=== PATIENT | female | born 1975 | race Hispanic/Latino ===

== ENCOUNTER 2019-12-13 17:52 | Emergency (ER) | payer OTHER, SELFPAY ==
[2019-12-13] VITALS (8 sets, daily range): BP systolic 151–166; BP diastolic 73–98; PULSE 98–106; RESP 16–24; TEMP 36.9; O2SAT 95–98
--- NOTE | ~2019-12-13 | CT_ITS ---
EXAMINATION: CT brain wo con INDICATION: Transient alteration of awareness COMPARISON: None TECHNIQUE: Standard unenhanced head CT. The dose-length product (DLP) was 681.00 mGy-cm. The mA was a djusted according to patient size. Iterative reconstruction technique was employed. FINDINGS: There is no intracranial hemorrhage, acute infarction, or abnormal mass lesion. The ventric les are normal. There is no abnormal mass effect or midline shift. The marie-white matter differentiat ion is normal. The basal cisterns are patent. The orbits are normal. The paranasal sinuses, mastoids and calvarium are normal. IMPRESSION: 1. No acute intracranial abnormality. Reviewed, dictated and finalized at location A.
--- NOTE | 2019-12-13 17:57 | ECG_ITS ---
Measurements Intervals [place] Rate: 101 P: 29 VT: 175 QRS: 8 QRSD: 83 T: 19 QT: 312 QTc: 406 Interpretive Statements SINUS TACHYCARDIA BORDERLINE ECG Electronically Signed On 12-13-2019 20:06:38 CDT by James Bhatt D.O.
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
[2019-12-13] MEDS: SODIUM CHLORIDE 0.9% IV 1,000 ML 999 ML IV CONT ×2 (18:54→19:08)
[2019-12-13 19:37] LABS: Blood Urea Nitrogen 14 mg/dL (7-17); Calcium 8.4 mg/dL (8.4-10.2); Carbon Dioxide 25 mmol/L (22-30); Chloride 105 mmol/L (98-107); Estimated CRCL calculation 98 ml/min; Estimated Glomerular Filt Rate > 60; Glucose 99 mg/dL (65-105); Potassium 3.7 mmol/L (3.4-5.0); Sodium 137 mmol/L (137-145)
--- NOTE | 2019-12-13 19:44 | PC.NURSE ---
pt received 2l NS ORDERED BY DR PAREKH
[2019-12-13 19:58] LABS: Basophils Absolute Auto 0.1 K/mm3 (0.0-0.1); Basophils Percent Auto 0.5 % (0.2-1.2); Eosinophils Absolute Auto 0.3 K/mm3 (0-0.3); Eosinophils Percent Auto 2.3 % (0-4.4); Hematocrit 39.9 % (37.0-47.0); Hemoglobin 13.5 g/dL (12.0-15.0); Immature Granulocyte Absolute 0.09 K/mm3 (0.00-0.031); Immature Granulocyte Percent A 0.6 % (0-0.5); Lymphocytes Absolute Auto 1.11 K/mm3 (0.9-3.2); Lymphocytes Percent Auto 7.4 % (18.3-44.2); Mean Corpuscular HGB Conc 33.8 g/dl (32-36); Mean Corpuscular Hemoglobin 29.5 pg (26-34); Mean Corpuscular Volume 87.1 fl (80-100); Mean Platelet Volume 9.4 fl (7.4-10.4); Monocytes Absolute Auto 1.1 K/mm3 (0.1-0.6); Monocytes Percent Auto 7.2 % (2.6-8.5); Neutrophils Absolute Auto 12.2 K/mm3 (1.3-6.7); Platelet Count Result 377 k/mm3 (150-375); Red Blood Count 4.58 M/mm3 (4.2-5.4); Red Cell Distribution Width 15.2 % (11.5-14.5); White Blood Count 14.9 K/mm3 (4.5-10.0)
[2019-12-13 19:59] LABS: Amphetamine Screen Urine Negative (Negative); Barbiturate Screen Urine Negative (Negative); Benzodiazepines Screen Urine Negative (Negative); Cannabinoid Screen Urine Negative (Negative); Cocaine Screen Urine Negative (Negative); Methadone Screen Urine Negative (Negative); Opiate Screen Urine Negative (Negative); Phencyclidine Screen Urine Negative (Negative)
== END 2019-12-13 20:30 | disposition home or self-care (01) ==
PROVIDERS: General Practice; Emergency Provider Emergency Medicine; PCP Internal Medicine
DX: R55 Syncope and collapse (principal); D72.829 Elevated white blood cell count, unspecified; D47.3 Essential (hemorrhagic) thrombocythemia; I10 Essential (primary) hypertension; R00.0 Tachycardia, unspecified
CPT/HCPCS: 36415; 70450; 80048; 80307; 81025; 85025; 93005; 99284; J7030

== ENCOUNTER 2020-05-17 16:56 | Emergency (ER) | payer OTHER, SELFPAY ==
[2020-05-17 17:06] VITALS: BP 150/77; PULSE 80; RESP 16; TEMP 36.9; O2SAT 100
--- NOTE | 2020-05-17 17:13 | ED.FEMALEGU ---
HPI - Female Genitourinary General Chief complaint: Urogenital-Female Stated complaint: possible uti Time Seen by Provider: 05/17/20 17:13 Source: patient and RN notes reviewed History of Present Illness HPI Narrative: Patient is a 45-year-old female who presents the urgent care with complaints of burning with urination. Patient states that started on . Patient states that she was seen in the emergency room at the beginning April and was on Macrobid at that time for UTI. States that she is aware that she is not drinking enough water. Denies of any abdominal pain, nausea, vomiting, fever, low back pain. Patient has not taken anything cruo-[id number]-[id number] for her symptoms. No other acute complaints. No acute distress noted. Patient aware of the plan of care. Some parts of this dictation were generated by voice recognition software and may contain typographical and/or grammatical inaccuracies. Related Data Home Medications Medication Instructions Recorded Confirmed levetiracetam [Keppra] 500 mg PO BID 05/17/20 05/17/20 lisinopril [Zestril] 10 mg PO DAILY 05/17/20 05/17/20 methotrexate sodium [Methotrexate 7.5 mg PO DIRECTED 05/17/20 05/17/20 (Anti-Rheumatic)] Allergies Allergy/AdvReac Type Severity Reaction Status Date / Time No Known Allergies Allergy Verified 05/17/20 17:14 Review of Systems Review of Systems: Narrative: CONSTITUTIONAL: Denies fever, chills, or sweats. EYES: Denies visual changes, redness, or discharge. ENT: Denies rhinorrhea, congestion, sore throat, or otalgia. CARDIOVASCULAR: Denies chest pain, palpitations, or edema. RESPIRATORY: Denies cough or dyspnea. GASTROINTESTINAL: Denies abdominal pain, nausea, vomiting, or diarrhea. GENITOURINARY: Reports of dysuria SKIN: Denies rash or itching. MUSCULOSKELETAL: Denies back pain, joint pain, or myalgia. NEUROLOGIC: Denies headache, numbness, or weakness. All other systems reviewed are negative, except as documented in HPI. [facility] Past Medical History Medical History (Updated 05/17/20 @ 17:16 by OKSANA Pinto) Hypertension Mental disability Syncope Surgical History Surgical History (Updated 12/13/19 @ 18:26 by Ariana Munroe MD) History of arthroscopy of right knee History of tubal ligation Social History Social History Smoking status: Never smoker Second hand tobacco smoke exposure: No Alcohol intake: never Gender identity (if verbalized by the patient): Female Comments At the time of my signature, I reviewed and agree with the nursing past medical, surgical, social, and family history. There is no relevant family history pertinent to the patient complaint. Exam Narrative: Exam Narrative: GENERAL: This is a well-nourished, well-developed patient, in no apparent distress. HEAD: normocephalic, atraumatic. EYES: PERRL. Sclera clear/white. Vision is grossly intact. EARS: External ears normal NOSE: External nose normal with no obvious nasal discharge, nares without redness, no rhinorrhea. THROAT: Mucous membranes moist NECK: Neck supple GASTROINTESTINAL: Abdomen soft, non-tender, nondistended. SKIN: warm, intact with no suspicious lesions or rash, good texture and turgor. NEURO: awake, alert, and oriented to person, place and time. There were no obvious focal neurologic abnormalities. EXTREMITIES: No clubbing, cyanosis, or edema. BACK: Negative bilateral CVA tenderness Course Vital Signs Vital signs: Vital Signs Temperature 98.4 F 05/17/20 17:06 Pulse Rate 80 05/17/20 17:06 Respiratory Rate 16 05/17/20 17:06 Blood Pressure 150/77 H 05/17/20 17:06 Pulse Oximetry 100 05/17/20 17:06 Temperature 98.4 F 05/17/20 17:06 Pulse Rate 80 05/17/20 17:06 Respiratory Rate 16 05/17/20 17:06 Blood Pressure 150/77 H 05/17/20 17:06 Pulse Oximetry 100 05/17/20 17:06 Reviewed-patient is informed that they may have pre-hypertension
== END 2020-05-17 17:23 | disposition home or self-care (01) ==
PROVIDERS: Emergency Provider Nurse Practitioner Family
DX: N39.0 Urinary tract infection, site not specified (principal); I10 Essential (primary) hypertension
CPT/HCPCS: 81003; 87077; 87086; 87088; 87186; 99213; G0463

== ENCOUNTER 2021-06-23 14:25 | Emergency (ER) | payer OTHER, SELFPAY ==
[2021-06-23 14:36] VITALS: BP 130/74; PULSE 83; RESP 18; TEMP 36.7; O2SAT 100
--- NOTE | 2021-06-23 14:39 | ED.FEMALEGU ---
HPI - Female Genitourinary General Chief complaint: Urogenital-Female Stated complaint: uti Time Seen by Provider: 06/23/21 14:39 Source: patient, RN notes reviewed and old records reviewed Mode of arrival: ambulatory Limitations: no limitations History of Present Illness HPI Narrative: 46-year-old female presents to the [facility] with complaints of urinary symptoms for 1 week. Denies any chest pain, abdominal pain. No nausea vomiting or diarrhea. Denies fevers Related Data Home Medications Medication Instructions Recorded Confirmed levetiracetam [Keppra] 500 mg PO BID 05/17/20 05/17/20 lisinopril [Zestril] 10 mg PO DAILY 05/17/20 05/17/20 methotrexate sodium [Methotrexate 7.5 mg PO DIRECTED 05/17/20 05/17/20 (Anti-Rheumatic)] Allergies Allergy/AdvReac Type Severity Reaction Status Date / Time No Known Allergies Allergy Verified 06/23/21 14:40 Review of Systems Review of Systems: All systems reviewed & are unremarkable except as noted in HPI and below Constitutional: Constitutional: Reports no additional constitutional complaints, Denies chills and Denies fatigue Eyes: Eyes: Reports no additional eye complaints ENT: Reports system reviewed and no additional complaints, except as documented Cardiovascular: Cardiovascular: Reports no additional cardiovascular complaints and Denies chest pain Respiratory: Respiratory: Reports no additional respiratory complaints, Denies cough and Denies dyspnea Gastrointestinal: Gastrointestinal: Reports no additional gastrointestinal complaints, Denies abdominal pain, Denies diarrhea, Denies nausea and Denies vomiting Genitourinary: Genitourinary: Reports as per HPI, Reports nocturia, Reports dysuria, Denies flank pain and Denies vaginal discharge Musculoskeletal: Musculoskeletal: Reports no additional musculoskeletal complaints and Denies back pain Integumentary/Breasts: Skin/Breast: Reports system reviewed and no additional complaints, except as docu Neurologic: Reports system reviewed and no additional complaints, except as documented Psychiatric: Psychiatric: Reports no additional psychiatric complaints Endocrine: Endocrine: Denies fatigue Allergic/Immunologic: Allergic/Immunologic: Reports no additional allergic/immunologic complaints [facility] Past Medical History Medical History (Updated 06/23/21 @ 19:47 by Jenn Torres) Hypertension Mental disability Syncope Surgical History Surgical History History of arthroscopy of right knee History of tubal ligation Social History Social History Smoking status: Never smoker Second hand tobacco smoke exposure: No Alcohol intake: never Gender identity (if verbalized by the patient): Female Comments At the time of my signature, I reviewed and agree with the nursing past medical, surgical, social, and family history. There is no relevant family history pertinent to the patient complaint. Exam Const: General: healthy appearing, no acute distress and alert Nutritional Appearance: well nourished Orientation/consciousness: patient oriented x3 Limitations: no limitations HENMT: Head: normal to inspection Eyes: Conjunctivae: conjunctivae normal Pupils: Equal, round and reactive pupils present Neck: Neck: normal visual inspection, no lymphadenopathy and no meningeal signs Chest: Chest palpation & inspection: normal inspection of the chest and abnormal inspection of the chest Resp: Effort & Inspection: normal respiratory effort Auscultation: clear to auscultation bilaterally Cardio: Rate: regular rate Rhythm: regular rhythm GI: GI Palp: Yes Soft to palpation and No Tenderness to palpation present (GI) : General: Yes no CVA tenderness Back/Spine/Pelvis: Back: no CVA tenderness Skin: General skin exam: normal color Rashes: no rashes Wounds: no wounds Neuro: General: patient oriented x3, mov
[2021-06-23 14:52] VITALS: BP 130/74; PULSE 83; RESP 18; TEMP 36.7; O2SAT 100
== END 2021-06-23 15:32 | disposition home or self-care (01) ==
PROVIDERS: Emergency Provider Nurse Practitioner
DX: N39.0 Urinary tract infection, site not specified (principal); I10 Essential (primary) hypertension; F79 Unspecified intellectual disabilities
CPT/HCPCS: 81003; 87077; 87086; 87088; 87186; 99213; G0463

== ENCOUNTER 2022-03-20 12:35 | Emergency (ER) | payer OTHER, SELFPAY ==
[2022-03-20 12:58] VITALS: BP 126/60; PULSE 88; RESP 16; TEMP 37.1; O2SAT 99
--- NOTE | 2022-03-20 13:05 | ED.FEMALEGU ---
HPI - Female Genitourinary General Chief complaint: Urogenital-Female Stated complaint: uti Time Seen by Provider: 03/20/22 13:05 Source: patient and RN notes reviewed Mode of arrival: wheelchair Limitations: language barrier History of Present Illness HPI Narrative: 46 y/o female presented for c/o burning with urination for about 3 days. Endorses itching and low abdominal pain with urinating. Denies flank pain, hematuria, n/v/f/c. She was recently hospitalized for left leg infection, currently in wheelchair. Related Data Home Medications Medication Instructions Recorded Confirmed levetiracetam 500 mg tablet 500 mg PO BID 05/17/20 03/20/22 (Keppra) lisinopril 10 mg tablet (Zestril) 10 mg PO DAILY 05/17/20 03/20/22 methotrexate sodium 2.5 mg tablet 7.5 mg PO DIRECTED 05/17/20 03/20/22 lisinopril 10 mg tablet 10 mg PO DAILY 03/20/22 03/20/22 meloxicam 15 mg tablet 15 mg PO DAILY 03/20/22 03/20/22 Allergies Allergy/AdvReac Type Severity Reaction Status Date / Time No Known Allergies Allergy Verified 03/20/22 12:41 Review of Systems Review of Systems: CONSTITUTIONAL: Denies body aches, fever, chills, or sweats. CARDIOVASCULAR: Denies chest pain, palpitations, or edema. RESPIRATORY: Denies cough or dyspnea. GASTROINTESTINAL: Denies abdominal pain, nausea, vomiting, or diarrhea. GENITOURINARY: Reports dysuria, frequency, denies urgency, hematuria, flank pain. MUSCULOSKELETAL: Denies back pain or myalgia. [facility] Past Medical History Medical History Hypertension Mental disability Syncope Surgical History Surgical History History of arthroscopy of right knee History of tubal ligation Social History Social History Smoking status: Never smoker Second hand tobacco smoke exposure: No Alcohol intake: never Gender identity (if verbalized by the patient): Female Comments At time of signature, I have reviewed and agree with nursing past medical, surgical, social and family history unless otherwise noted. Please see nursing chart for further information. There is no relevant family history pertinent to the presenting complaint Exam Narrative: GENERAL: Well-appearing ENT: Mucous membranes pink and moist. CHEST: No respiratory distress. Clear to auscultation. HEART: Regular rate and rhythm. ABDOMEN: Soft, nontender, nondistended, normal active bowel sounds. No CVA tenderness SKIN: Warm, dry, Dressing to Left leg; wheelchair NEURO: No focal deficits. Alert and oriented x3. Course Course Emergency Course: Patient is aware of diagnosis, understands and agrees to treatment plan. Anticipatory guidance given. Patient agrees to follow-up as directed and is aware of reasons to seek care at the emergency department. Portions of this record may have been created with voice recognition software Level of Care: Express Care Visit Vital Signs Vital signs: Vital Signs Temperature 98.7 F 03/20/22 12:58 Pulse Rate 88 03/20/22 12:58 Respiratory Rate 16 03/20/22 12:58 Blood Pressure 126/60 03/20/22 12:58 Pulse Oximetry 99 03/20/22 12:58 Oxygen Delivery Room Air 03/20/22 12:58 Temperature 98.7 F 03/20/22 12:58 Pulse Rate 88 03/20/22 12:58 Respiratory Rate 16 03/20/22 12:58 Blood Pressure 126/60 03/20/22 12:58 Pulse Oximetry 99 03/20/22 12:58 Oxygen Delivery Room Air 03/20/22 12:58 Reviewed MDM - Female Genitourinary MDM Narrative Medical decision making narrative: Urine unremarkable. Will treat for yeast infection at this time due to recent abx use, and send for culture. Advised supportive measures and signs/symptoms to go to the ER. Pt is appropriate for outpt treatment and f/u. Differential Diagnosis Differential diagnosis: Likely urinary tract infection, vaginitis and cystitis Lab Data
== END 2022-03-20 13:24 | disposition home or self-care (01) ==
PROVIDERS: Emergency Provider Nurse Practitioner Family
DX: R30.0 Dysuria (principal); I10 Essential (primary) hypertension; F79 Unspecified intellectual disabilities
CPT/HCPCS: 81003; 87086; 87088; 99213; G0463

== ENCOUNTER 2022-07-28 15:17 | Emergency (ER) | payer OTHER, SELFPAY ==
[2022-07-28 15:36] VITALS: BP 142/77; PULSE 79; RESP 16; TEMP 37.3; O2SAT 99
--- NOTE | 2022-07-28 15:39 | ED.FEMALEGU ---
HPI - Female Genitourinary General Chief complaint: Urogenital-Female Stated complaint: Abdominal Pain Time Seen by Provider: 07/28/22 15:39 Source: patient Mode of arrival: ambulatory Limitations: no limitations History of Present Illness HPI Narrative: [age] year female presents with complaint of urinary frequency, urgency, dysuria for 2 days. Reports suprapubic and low back pain that started yesterday. Afebrile. Denies nausea vomiting diarrhea. Reports similar symptoms with her last urinary tract infection. All systems reviewed and negative except as noted above. Related Data Home Medications Medication Instructions Recorded Confirmed levetiracetam 500 mg tablet 500 mg PO BID 05/17/20 07/28/22 (Keppra) methotrexate sodium 2.5 mg tablet 7.5 mg PO DIRECTED 05/17/20 07/28/22 lisinopril 10 mg tablet 10 mg PO DAILY 03/20/22 07/28/22 folic acid 1 mg tablet 1 mg PO DAILY 07/28/22 07/28/22 Allergies Allergy/AdvReac Type Severity Reaction Status Date / Time No Known Allergies Allergy Verified 07/28/22 15:29 Review of Systems Review of Systems: CONSTITUTIONAL: Denies fever, chills, or sweats. EYES: Denies visual changes, redness, or discharge. ENT: Denies rhinorrhea, congestion, sore throat, or otalgia. CARDIOVASCULAR: Denies chest pain, palpitations, or edema. RESPIRATORY: Denies cough or dyspnea. GASTROINTESTINAL: Denies abdominal pain, nausea, vomiting, or diarrhea. GENITOURINARY: Reports dysuria frequency, urgency. Denies hematuria. SKIN: Denies rash or itching. MUSCULOSKELETAL: Denies back pain, joint pain, or myalgia. NEUROLOGIC: Denies headache, numbness, or weakness. PSYCHIATRIC: Denies anxiety or depression. All other systems reviewed are negative, except as documented in HPI. [facility] Past Medical History Medical History Hypertension Mental disability Syncope Surgical History Surgical History History of arthroscopy of right knee History of tubal ligation Social History Social History Smoking status: Never smoker Second hand tobacco smoke exposure: No Alcohol intake: never Gender identity (if verbalized by the patient): Female Comments At time of signature, agree with nursing past medical, surgical, social and family history. There is no relevant family history pertinent to the presenting complaint. Exam Narrative: GENERAL: This is a well-nourished, well-developed patient, in no apparent distress. HEAD: normocephalic, atraumatic. EYES: PERRL. Sclera clear/white. Vision is grossly intact. EARS: External ears normal NOSE: External nose normal NECK: Neck supple, non-tender without lymphadenopathy, masses or thyromegaly. CARDIOVASCULAR: Regular rate and rhythm without murmurs, gallops, or rubs. RESPIRATORY: Clear to auscultation. Breath sounds equal bilaterally. No wheezes, rales, or rhonchi. SKIN: warm, Dry, intact with no suspicious lesions or rash, good texture and turgor. NEURO: awake, alert, and oriented to person, place and time. There were no obvious focal neurologic abnormalities. EXTREMITIES: No joint tenderness, effusion, or edema noted. Course Course Level of Care: Express Care Visit Vital Signs Vital signs: Vital Signs Temperature 37.3 C 07/28/22 15:36 Pulse Rate 79 07/28/22 15:36 Respiratory Rate 16 07/28/22 15:36 Blood Pressure 142/77 H 07/28/22 15:36 Pulse Oximetry 99 07/28/22 15:36 Oxygen Delivery Room Air 07/28/22 15:36 Temperature 37.3 C 07/28/22 15:36 Pulse Rate 79 07/28/22 15:36 Respiratory Rate 16 07/28/22 15:36 Blood Pressure 142/77 H 07/28/22 15:36 Pulse Oximetry 99 07/28/22 15:36 Oxygen Delivery Room Air 07/28/22 15:36 reviewed MDM - Female Genitourinary MDM Narrative Medical decision making narrative: Patient i
== END 2022-07-28 15:51 | disposition home or self-care (01) ==
PROVIDERS: Emergency Provider Nurse Practitioner Family
DX: N39.0 Urinary tract infection, site not specified (principal); I10 Essential (primary) hypertension; F79 Unspecified intellectual disabilities
CPT/HCPCS: 81003; 87086; 99213; G0463